=== PATIENT | male | born 1990 | race African-American/Black ===

== ENCOUNTER 2021-01-01 | Emergency (ER) | payer MEDICAID ==
[2021-01-01 16:01] LABS: HEMATOCRIT 44.4 % (39.0-50.0); HEMOGLOBIN 14.9 g/dl (14.0-18.0); IMMATURE GRANULOCYTES 0.4 % (0.0-5.0); MEAN CELL VOLUME 84.3 fL CALC (80.0-100.0); MEAN CORPUSCULAR HGB 28.3 pG CALC (26.0-32.0); MEAN CORPUSCULAR HGB CONC 33.6 g/dL CAL (32.0-36.0); NEUT# 10.8 thou/uL (1.82-7.42); RED BLOOD COUNT 5.27 mill/uL (4.70-6.10)
[2021-01-01 16:18] LABS: ALBUMIN 4.8 g/dL (3.2-5.0); ALKALINE PHOSPHATASE 50 u/l (38-126); AMYLASE 124 u/l (30-110); ANION GAP 12 (6-22 (CALC)); BILIRUBIN, TOTAL 0.5 mg/dL (0.0-1.4); BUN 10 mg/dL (9-20); BUN/CREATININE RATIO 11 (12-20 (CALC)); CARBON DIOXIDE 26 mmol/l (22-30); CHLORIDE 103 mmol/l (95-108); CREATININE 0.9 mg/dL (0.7-1.3); GFR > 60 ML/MIN (>=60 (CALC)); GFR FOR AFR.AMER. > 60 ML/MIN (>=60 (CALC)); LIPASE 41 u/l (23-300); POTASSIUM 3.7 mmol/l (3.5-5.1); SGOT/AST 41 u/l (17-59); SODIUM 138 mmol/l (137-146); TOTAL PROTEIN 8.1 g/dL (6.3-8.2)
[2021-01-01 16:21] LABS: URINE BILIRUBIN - DIPSTICK NEGATIVE (NEGATIVE); URINE BLOOD DIPSTICK SMALL (NEGATIVE); URINE COLOR YELLOW; URINE GLUCOSE - DIPSTICK NEGATIVE (NEGATIVE); URINE KETONE >=80 mg/dL (NEGATIVE); URINE LEUK ESTERASE NEGATIVE (NEGATIVE); URINE PH 8.5 (4.5-8.0); URINE PROTEIN - DIPSTICK TRACE mg/dL (NEG-TRACE); URINE UROBILINOGEN - DIPSTICK 0.2 E.U./dL (0.2)
[2021-01-01 16:27] LABS: URINE NITRITE - DIPSTICK NEGATIVE (Negative)
[2021-01-01 16:28] LABS: MYOGLOBIN 42 ng/mL (0 - 121)
[2021-01-01] MEDS ORDERED: ONDANSETRON4 MG PO (17:19)
[2021-01-01] MEDS ORDERED: ULTRAM50 M1 PO (17:19)
[2021-01-01] MEDS ORDERED: CIPROFLOXACN500 MG PO (17:19)
== END 2021-01-01 18:13 | disposition home or self-care (01) | DRG 392 ==
PROVIDERS: Emergency Medicine
DX: K52.9 Noninfective gastroenteritis and colitis, unspecified (principal); F17.200 Nicotine dependence, unspecified, uncomplicated; Z20.822 Contact with and (suspected) exposure to COVID-19
CPT/HCPCS: Q9967; S0164

== ENCOUNTER 2021-01-03 | Emergency (ER) | payer MEDICAID ==
[~2021-01-03] MED LIST: CIPROFLOXACN500 MG PO; ONDANSETRON4 MG PO; ULTRAM50 M1 PO
[2021-01-03 13:19] LABS: HEMATOCRIT 43.7 % (39.0-50.0); HEMOGLOBIN 14.8 g/dl (14.0-18.0); IMMATURE GRANULOCYTES 0.1 % (0.0-5.0); MEAN CELL VOLUME 83.4 fL CALC (80.0-100.0); MEAN CORPUSCULAR HGB 28.2 pG CALC (26.0-32.0); MEAN CORPUSCULAR HGB CONC 33.9 g/dL CAL (32.0-36.0); NEUT# 6.14 thou/uL (1.82-7.42); RED BLOOD COUNT 5.24 mill/uL (4.70-6.10); RED CELL DISTRI WIDTH 13.7 % (11.5-15.5)
[2021-01-03 13:42] LABS: URINE BILIRUBIN - DIPSTICK NEGATIVE (NEGATIVE); URINE BLOOD DIPSTICK TRACE-LYSED (NEGATIVE); URINE COLOR YELLOW; URINE GLUCOSE - DIPSTICK NEGATIVE (NEGATIVE); URINE KETONE 15 mg/dL (NEGATIVE); URINE LEUK ESTERASE NEGATIVE (NEGATIVE); URINE PH 7.5 (4.5-8.0); URINE PROTEIN - DIPSTICK NEGATIVE (NEG-TRACE); URINE UROBILINOGEN - DIPSTICK 0.2 E.U./dL (0.2)
[2021-01-03 13:43] LABS: URINE NITRITE - DIPSTICK NEGATIVE (Negative)
[2021-01-03 13:46] LABS: ALBUMIN 4.8 g/dL (3.2-5.0); ALKALINE PHOSPHATASE 46 u/l (38-126); AMYLASE 121 u/l (30-110); ANION GAP 12 (6-22 (CALC)); BILIRUBIN, TOTAL 0.7 mg/dL (0.0-1.4); BUN 10 mg/dL (9-20); BUN/CREATININE RATIO 12 (12-20 (CALC)); CARBON DIOXIDE 24 mmol/l (22-30); CHLORIDE 103 mmol/l (95-108); CREATININE 0.9 mg/dL (0.7-1.3); GFR > 60 ML/MIN (>=60 (CALC)); GFR FOR AFR.AMER. > 60 ML/MIN (>=60 (CALC)); LIPASE 51 u/l (23-300); POTASSIUM 3.5 mmol/l (3.5-5.1); SGOT/AST 43 u/l (17-59); SODIUM 135 mmol/l (137-146)
== END 2021-01-03 17:49 | disposition home or self-care (01) | DRG 313 ==
PROVIDERS: Emergency Medicine
DX: R07.9 Chest pain, unspecified (principal); R10.9 Unspecified abdominal pain; F17.200 Nicotine dependence, unspecified, uncomplicated
CPT/HCPCS: Q9967

== ENCOUNTER 2021-05-28 20:04 | Emergency (ER) | payer MEDICAID ==
[~2021-05-28] VITALS: Ht 190.5 cm; Wt 77.0 kg
[2021-05-28 21:30] VITALS: BP 141/79
== END 2021-05-28 21:30 | disposition home or self-care (01) ==
LOC: ED 20:04
DX: U07.1 COVID-19 (principal); F17.200 Nicotine dependence, unspecified, uncomplicated

== ENCOUNTER 2021-10-24 10:44 | Emergency (ER) | payer OTHER ==
[~2021-10-24] VITALS: Ht 190.5 cm; Wt 80.0 kg
[2021-10-24 13:34] VITALS: BP 126/89
== END 2021-10-24 15:28 | disposition home or self-care (01) ==
LOC: ED 10:44
DX: M70.41 Prepatellar bursitis, right knee (principal); F17.210 Nicotine dependence, cigarettes, uncomplicated

== ENCOUNTER 2022-01-22 11:28 | Emergency (ER) | payer OTHER ==
[2022-01-22] VITALS (7 sets, daily range): BP systolic 115–140; BP diastolic 79–92
[~2022-01-22] VITALS: Ht 190.5 cm; Wt 70.0 kg
[2022-01-22 11:58] LABS: HEMOGLOBIN 15.5 g/dl (14.0-18.0); IMMATURE GRANULOCYTES 0.4 % (0.0-5.0); MEAN CELL VOLUME 86.4 fL CALC (80.0-100.0); MEAN CORPUSCULAR HGB 28.5 pG CALC (26.0-32.0); NEUT# 7.7 thou/uL (1.82-7.42); RED BLOOD COUNT 5.44 mill/uL (4.70-6.10); RED CELL DISTRI WIDTH 13.6 % (11.5-15.5)
[2022-01-22 12:11] LABS: ALBUMIN 4.7 g/dL (3.2-5.0); ALKALINE PHOSPHATASE 53 u/l (38-126); ANION GAP 8 (6-22 (CALC)); BUN 14 mg/dL (9-20); BUN/CREATININE RATIO 15 (12-20 (CALC)); CARBON DIOXIDE 28 mmol/l (22-30); CHLORIDE 104 mmol/l (95-108); CREATININE 0.9 mg/dL (0.7-1.3); ETHYL ALCOHOL 0 mg/dl (0-30); GFR > 60 ML/MIN (>=60 (CALC)); GFR FOR AFR.AMER. > 60 ML/MIN (>=60 (CALC)); LIPASE 56 u/l (23-300); POTASSIUM 4.2 mmol/l (3.5-5.1); SGOT/AST 30 u/l (17-59); SODIUM 136 mmol/l (137-146); TOTAL PROTEIN 7.8 g/dL (6.3-8.2)
[2022-01-22 12:13] LABS: BILIRUBIN, TOTAL 0.4 mg/dL (0.0-1.4)
[2022-01-22] MEDS ORDERED: PROTONIX40 M2 PO (13:51)
[2022-01-22] MEDS ORDERED: ZOFRAN4 MG/TAB PO (13:51)
== END 2022-01-22 14:18 | disposition home or self-care (01) ==
LOC: ED 11:28
DX: R10.84 Generalized abdominal pain (principal); R11.2 Nausea with vomiting, unspecified; R19.7 Diarrhea, unspecified; F12.10 Cannabis abuse, uncomplicated; F17.200 Nicotine dependence, unspecified, uncomplicated; Z20.822 Contact with and (suspected) exposure to COVID-19
CPT/HCPCS: Q9967; S0164

== ENCOUNTER 2022-01-24 08:07 | Emergency (ER) | payer OTHER ==
[2022-01-24] VITALS (12 sets, daily range): BP systolic 114–155; BP diastolic 68–102
[~2022-01-24] VITALS: Ht 190.5 cm; Wt 76.0 kg
[~2022-01-24 08:07] MED LIST changes: +PROTONIX40 M2 PO; +ZOFRAN4 MG/TAB PO
[2022-01-24 08:40] LABS: HEMOGLOBIN 15.5 g/dl (14.0-18.0); IMMATURE GRANULOCYTES 0.3 % (0.0-5.0); MEAN CELL VOLUME 88.2 fL CALC (80.0-100.0); MEAN CORPUSCULAR HGB 29.1 pG CALC (26.0-32.0); NEUT# 5.52 thou/uL (1.82-7.42); RED BLOOD COUNT 5.33 mill/uL (4.70-6.10); RED CELL DISTRI WIDTH 13.6 % (11.5-15.5)
[2022-01-24 08:53] LABS: ALBUMIN 4.2 g/dL (3.2-5.0); ALKALINE PHOSPHATASE 41 u/l (38-126); BUN 10 mg/dL (9-20); BUN/CREATININE RATIO 10 (12-20 (CALC)); CHLORIDE 106 mmol/l (95-108); CREATININE 0.9 mg/dL (0.7-1.3); GFR > 60 ML/MIN (>=60 (CALC)); GFR FOR AFR.AMER. > 60 ML/MIN (>=60 (CALC)); LIPASE 73 u/l (23-300); POTASSIUM 3.9 mmol/l (3.5-5.1); SGOT/AST 27 u/l (17-59); SODIUM 136 mmol/l (137-146); TOTAL PROTEIN 7.2 g/dL (6.3-8.2)
[2022-01-24 09:07] LABS: ANION GAP 13 (6-22 (CALC)); BILIRUBIN, TOTAL 0.6 mg/dL (0.0-1.4); CARBON DIOXIDE 21 mmol/l (22-30)
[2022-01-24 09:52] LABS: URINE BILIRUBIN - DIPSTICK NEGATIVE (NEGATIVE); URINE BLOOD DIPSTICK SMALL (NEGATIVE); URINE COLOR YELLOW; URINE GLUCOSE - DIPSTICK NEGATIVE (NEGATIVE); URINE KETONE 40 mg/dL (NEGATIVE); URINE LEUK ESTERASE NEGATIVE (NEGATIVE); URINE PROTEIN - DIPSTICK NEGATIVE (NEG-TRACE); URINE UROBILINOGEN - DIPSTICK 0.2 E.U./dL (0.2)
[2022-01-24 09:53] LABS: URINE NITRITE - DIPSTICK NEGATIVE (Negative)
[2022-01-24] MEDS ORDERED: BENTYL10 M1 PO (10:56)
[2022-01-24] MEDS ORDERED: SENNA-S1 TAB PO (10:56)
[2022-01-25] MEDS ORDERED: TORADOL PO (13:31)
[2022-01-25] MEDS ORDERED: PHENERGAN25 MG RE (13:31)
[2022-01-25] MEDS ORDERED: SENNA-S1 TAB PO (13:31)
== END 2022-01-24 11:14 | disposition home or self-care (01) ==
LOC: ED 08:07
PROVIDERS: Internal Medicine
DX: R10.84 Generalized abdominal pain (principal); F17.210 Nicotine dependence, cigarettes, uncomplicated; K56.41 Fecal impaction
CPT/HCPCS: J2060

== ENCOUNTER 2022-01-25 08:35 | Emergency (ER) | payer OTHER ==
[2022-01-25] VITALS (17 sets, daily range): BP systolic 117–170; BP diastolic 73–101
[~2022-01-25] VITALS: Ht 190.5 cm; Wt 72.7 kg
[~2022-01-25 08:35] MED LIST changes: +BENTYL10 M1 PO; +SENNA-S1 TAB PO
[2022-01-25 08:57] LABS: HEMATOCRIT 46.6 % (39.0-50.0); HEMOGLOBIN 15.5 g/dl (14.0-18.0); IMMATURE GRANULOCYTES 0.2 % (0.0-5.0); MEAN CELL VOLUME 87.4 fL CALC (80.0-100.0); MEAN CORPUSCULAR HGB 29.1 pG CALC (26.0-32.0); MEAN CORPUSCULAR HGB CONC 33.3 g/dL CAL (32.0-36.0); NEUT# 4.76 thou/uL (1.82-7.42); RED BLOOD COUNT 5.33 mill/uL (4.70-6.10); RED CELL DISTRI WIDTH 13.6 % (11.5-15.5)
[2022-01-25 09:12] LABS: ALBUMIN 4.4 g/dL (3.2-5.0); ALKALINE PHOSPHATASE 41 u/l (38-126); BILIRUBIN, TOTAL 0.6 mg/dL (0.0-1.4); BUN 11 mg/dL (9-20); BUN/CREATININE RATIO 13 (12-20 (CALC)); CHLORIDE 108 mmol/l (95-108); CPK 156 u/l (52-200); CREATININE 0.8 mg/dL (0.7-1.3); GFR > 60 ML/MIN (>=60 (CALC)); GFR FOR AFR.AMER. > 60 ML/MIN (>=60 (CALC)); LIPASE 107 u/l (23-300); MAGNESIUM 1.7 mg/dL (1.6-2.3); POTASSIUM 4.1 mmol/l (3.5-5.1); SGOT/AST 25 u/l (17-59); SODIUM 140 mmol/l (137-146); TOTAL PROTEIN 7.1 g/dL (6.3-8.2)
[2022-01-25 09:13] LABS: ANION GAP 9 (6-22 (CALC)); CARBON DIOXIDE 27 mmol/l (22-30)
[2022-01-25] MEDS ORDERED: SENNA-S1 TAB PO (13:31)
[2022-01-25] MEDS ORDERED: PHENERGAN25 MG RE (13:31)
[2022-01-25] MEDS ORDERED: TORADOL PO (13:31)
== END 2022-01-25 13:31 | disposition home or self-care (01) ==
LOC: ED 08:35
PROVIDERS: Internal Medicine
DX: R11.10 Vomiting, unspecified (principal); R10.33 Periumbilical pain; F12.10 Cannabis abuse, uncomplicated; F17.200 Nicotine dependence, unspecified, uncomplicated
CPT/HCPCS: J2060

== ENCOUNTER 2022-01-26 22:00 | Emergency (ER) | payer OTHER ==
[~2022-01-26] VITALS: Ht 190.5 cm; Wt 72.7 kg
[~2022-01-26 22:00] MED LIST changes: +PHENERGAN25 MG RE; +TORADOL PO
[2022-01-26 23:16] VITALS: BP 121/69
[2022-01-26 23:31] VITALS: BP 132/99
[2022-01-26 23:41] LABS: HEMOGLOBIN 14.6 g/dl (14.0-18.0); MEAN CELL VOLUME 85.5 fL CALC (80.0-100.0); NEUT# 7.32 thou/uL (1.82-7.42); RED BLOOD COUNT 5.03 mill/uL (4.70-6.10); RED CELL DISTRI WIDTH 12.9 % (11.5-15.5)
[2022-01-26 23:45] VITALS: BP 144/86
[2022-01-26 23:54] LABS: ALBUMIN 4.5 g/dL (3.2-5.0); ALKALINE PHOSPHATASE 45 u/l (38-126); AMYLASE 120 u/l (30-110); ANION GAP 9 (6-22 (CALC)); BILIRUBIN, TOTAL 0.4 mg/dL (0.0-1.4); BUN 12 mg/dL (9-20); BUN/CREATININE RATIO 14 (12-20 (CALC)); CARBON DIOXIDE 30 mmol/l (22-30); CHLORIDE 102 mmol/l (95-108); CREATININE 0.8 mg/dL (0.7-1.3); GFR > 60 ML/MIN (>=60 (CALC)); GFR FOR AFR.AMER. > 60 ML/MIN (>=60 (CALC)); LIPASE 63 u/l (23-300); POTASSIUM 3.7 mmol/l (3.5-5.1); SGOT/AST 28 u/l (17-59); SODIUM 137 mmol/l (137-146); TOTAL PROTEIN 7.1 g/dL (6.3-8.2)
[2022-01-27 00:01] VITALS: BP 142/95
[2022-01-27 00:30] VITALS: BP 139/73
[2022-01-27] MEDS ORDERED: ULTRAM50 M1 PO (04:36)
[2022-01-27] MEDS ORDERED: MECLIZINE25 MG PO (04:36)
[2022-01-27] MEDS ORDERED: PREVACID30 M3 PO (04:36)
[2022-01-27 04:40] VITALS: BP 139/73
== END 2022-01-27 04:48 | disposition home or self-care (01) ==
LOC: ED 22:00
PROVIDERS: Emergency Medicine
DX: R10.13 Epigastric pain (principal); R10.33 Periumbilical pain; R11.10 Vomiting, unspecified; F17.200 Nicotine dependence, unspecified, uncomplicated
CPT/HCPCS: Q9967; S0164

== ENCOUNTER 2022-03-28 10:23 | Emergency (ER) | payer MEDICAID ==
[~2022-03-28] VITALS: Ht 190.5 cm; Wt 80.0 kg
[~2022-03-28 10:23] MED LIST changes: +MECLIZINE25 MG PO; +PREVACID30 M3 PO
[2022-03-28] MEDS ORDERED: EC-NAPROXEN500 MG PO (11:59)
[2022-03-28 12:04] VITALS: BP 119/83
== END 2022-03-28 12:10 | disposition home or self-care (01) ==
LOC: ED 10:23
DX: M25.462 Effusion, left knee (principal); F17.200 Nicotine dependence, unspecified, uncomplicated
CPT/HCPCS: L1830

== ENCOUNTER 2022-05-25 15:31 | Emergency (ER) | payer MEDICAID ==
[~2022-05-25] VITALS: Ht 190.5 cm; Wt 90.9 kg
[2022-05-25] VITALS (12 sets, daily range): BP systolic 126–141; BP diastolic 70–94
[~2022-05-25 15:31] MED LIST changes: +EC-NAPROXEN500 MG PO
[2022-05-25 16:07] LABS: HEMATOCRIT 45.2 % (39.0-50.0); HEMOGLOBIN 15.5 g/dl (14.0-18.0); IMMATURE GRANULOCYTES 0.1 % (0.0-5.0); MEAN CELL VOLUME 84.5 fL CALC (80.0-100.0); MEAN CORPUSCULAR HGB CONC 34.3 g/dL CAL (32.0-36.0); NEUT# 7.15 thou/uL (1.82-7.42); RED BLOOD COUNT 5.35 mill/uL (4.70-6.10); RED CELL DISTRI WIDTH 13.1 % (11.5-15.5)
[2022-05-25 16:25] LABS: ALBUMIN 4.9 g/dL (3.2-5.0); ALKALINE PHOSPHATASE 56 u/l (38-126); AMYLASE 156 u/l (30-110); ANION GAP 12 (6-22 (CALC)); BUN 10 mg/dL (9-20); BUN/CREATININE RATIO 11 (12-20 (CALC)); CARBON DIOXIDE 29 mmol/l (22-30); CHLORIDE 103 mmol/l (95-108); CREATININE 0.9 mg/dL (0.7-1.3); GFR FOR AFR.AMER. > 60 ML/MIN (>=60 (CALC)); GFR OTHER RACES > 60 ML/MIN (>=60 (CALC)); LIPASE 67 u/l (23-300); POTASSIUM 4.1 mmol/l (3.5-5.1); SGOT/AST 30 u/l (17-59); SODIUM 140 mmol/l (137-146); TOTAL PROTEIN 8.1 g/dL (6.3-8.2)
[2022-05-25 16:28] LABS: BILIRUBIN, TOTAL 0.6 mg/dL (0.0-1.4)
[2022-05-25 16:37] LABS: MYOGLOBIN 47 ng/mL (0 - 121)
[2022-05-25] MEDS ORDERED: NAPROXEN500 MG PO (19:55)
[2022-05-25] MEDS ORDERED: METHOCARBAMOL500 MG PO (19:55)
[2022-05-25] MEDS ORDERED: ALPRAZOLAM0.25 MG PO (19:55)
== END 2022-05-25 20:10 | disposition home or self-care (01) ==
LOC: ED 15:31
PROVIDERS: Nurse Practitioner
DX: R07.9 Chest pain, unspecified (principal); F41.9 Anxiety disorder, unspecified; F17.200 Nicotine dependence, unspecified, uncomplicated

== ENCOUNTER 2022-05-28 09:36 | Emergency (ER) | payer MEDICAID ==
[2022-05-28] VITALS (8 sets, daily range): BP systolic 148–167; BP diastolic 93–118
[~2022-05-28] VITALS: Ht 190.5 cm; Wt 72.5 kg
[~2022-05-28 09:36] MED LIST changes: +ALPRAZOLAM0.25 MG PO; +METHOCARBAMOL500 MG PO; +NAPROXEN500 MG PO
[2022-05-28 10:17] LABS: HEMATOCRIT 46.1 % (39.0-50.0); HEMOGLOBIN 15.9 g/dl (14.0-18.0); IMMATURE GRANULOCYTES 0.1 % (0.0-5.0); MEAN CELL VOLUME 83.7 fL CALC (80.0-100.0); MEAN CORPUSCULAR HGB 28.9 pG CALC (26.0-32.0); MEAN CORPUSCULAR HGB CONC 34.5 g/dL CAL (32.0-36.0); NEUT# 7.16 thou/uL (1.82-7.42); RED BLOOD COUNT 5.51 mill/uL (4.70-6.10); RED CELL DISTRI WIDTH 12.7 % (11.5-15.5)
[2022-05-28 10:34] LABS: ALBUMIN 4.5 g/dL (3.2-5.0); ALKALINE PHOSPHATASE 43 u/l (38-126); ANION GAP 15 (6-22 (CALC)); BILIRUBIN, TOTAL 0.5 mg/dL (0.0-1.4); BUN 11 mg/dL (9-20); BUN/CREATININE RATIO 12 (12-20 (CALC)); CARBON DIOXIDE 27 mmol/l (22-30); CHLORIDE 101 mmol/l (95-108); CREATININE 0.9 mg/dL (0.7-1.3); GFR FOR AFR.AMER. > 60 ML/MIN (>=60 (CALC)); GFR OTHER RACES > 60 ML/MIN (>=60 (CALC)); POTASSIUM 3.7 mmol/l (3.5-5.1); SGOT/AST 25 u/l (17-59); SODIUM 140 mmol/l (137-146); TOTAL PROTEIN 7.6 g/dL (6.3-8.2)
== END 2022-05-28 13:18 | disposition home or self-care (01) ==
LOC: ED 09:36
PROVIDERS: Family Medicine
DX: R07.9 Chest pain, unspecified (principal); F17.200 Nicotine dependence, unspecified, uncomplicated; Z20.822 Contact with and (suspected) exposure to COVID-19
CPT/HCPCS: Q9967

== ENCOUNTER 2022-08-07 15:09 | Emergency (ER) | payer OTHER ==
[~2022-08-07] VITALS: Ht 190.5 cm; Wt 77.0 kg
[2022-08-07 18:40] VITALS: BP 130/62
== END 2022-08-07 18:40 | disposition home or self-care (01) ==
LOC: ED 15:09
DX: U07.1 COVID-19 (principal); F17.210 Nicotine dependence, cigarettes, uncomplicated

== ENCOUNTER 2022-11-08 08:25 | Emergency (ER) | payer OTHER ==
[~2022-11-08] VITALS: Ht 190.5 cm; Wt 70.3 kg
[2022-11-08] VITALS (10 sets, daily range): BP systolic 109–153; BP diastolic 67–106
[2022-11-08 09:03] LABS: URINE BLOOD DIPSTICK TRACE-INTACT (NEGATIVE); URINE COLOR YELLOW; URINE GLUCOSE - DIPSTICK NEGATIVE (NEGATIVE); URINE KETONE 15 mg/dL (NEGATIVE); URINE LEUK ESTERASE NEGATIVE (NEGATIVE); URINE PROTEIN - DIPSTICK TRACE mg/dL (NEG-TRACE); URINE SPECIFIC GRAVITY 1.025; URINE UROBILINOGEN - DIPSTICK 0.2 E.U./dL (0.2)
[2022-11-08 09:10] LABS: URINE BILIRUBIN - DIPSTICK SMALL (NEGATIVE); URINE NITRITE - DIPSTICK NEGATIVE (Negative)
[2022-11-08 09:30] LABS: BASO% 0.2 % (0-3); HEMATOCRIT 48.4 % (39.0-50.0); HEMOGLOBIN 16.3 g/dl (14.0-18.0); IMMATURE GRANULOCYTES 0.1 % (0.0-5.0); LYMPH% 11.9 % (15-41); MEAN CELL VOLUME 86.9 fL CALC (80.0-100.0); MEAN CORPUSCULAR HGB 29.3 pG CALC (26.0-32.0); MEAN CORPUSCULAR HGB CONC 33.7 g/dL CAL (32.0-36.0); MONO% 4.8 % (2-13); NEUT# 6.98 thou/uL (1.82-7.42); RED BLOOD COUNT 5.57 mill/uL (4.70-6.10); RED CELL DISTRI WIDTH 13.5 % (11.5-15.5)
[2022-11-08 09:43] LABS: ALBUMIN 4.9 g/dL (3.2-5.0); ALKALINE PHOSPHATASE 58 u/l (38-126); ANION GAP 11 (6-22 (CALC)); BUN 15 mg/dL (9-20); BUN/CREATININE RATIO 15 (12-20 (CALC)); CARBON DIOXIDE 30 mmol/l (22-30); CHLORIDE 103 mmol/l (95-108); GFR FOR AFR.AMER. > 60 ML/MIN (>=60 (CALC)); GFR OTHER RACES > 60 ML/MIN (>=60 (CALC)); LIPASE 61 u/l (23-300); POTASSIUM 4.3 mmol/l (3.5-5.1); SGOT/AST 33 u/l (17-59); SODIUM 140 mmol/l (137-146); TOTAL PROTEIN 7.6 g/dL (6.3-8.2)
[2022-11-08 09:44] LABS: BILIRUBIN, TOTAL 0.2 mg/dL (0.2-1.3)
[2022-11-08] MEDS ORDERED: ZOFRAN4 MG/TAB PO (12:04)
== END 2022-11-08 12:12 | disposition home or self-care (01) ==
LOC: ED 08:25
PROVIDERS: Family Medicine
DX: R10.12 Left upper quadrant pain (principal); R10.32 Left lower quadrant pain; R11.2 Nausea with vomiting, unspecified; F17.210 Nicotine dependence, cigarettes, uncomplicated
CPT/HCPCS: Q9967

== ENCOUNTER 2022-12-03 12:49 | Emergency (ER) | payer OTHER ==
[~2022-12-03] VITALS: Ht 190.5 cm; Wt 74.8 kg
[2022-12-03] VITALS (8 sets, daily range): BP systolic 100–141; BP diastolic 60–90
[2022-12-03] MEDS ORDERED: NAPROXEN500 MG PO (14:05)
== END 2022-12-03 14:48 | disposition home or self-care (01) ==
LOC: ED 12:49
DX: S63.501A Unspecified sprain of right wrist, initial encounter (principal); F17.200 Nicotine dependence, unspecified, uncomplicated; V28.09XA Other motorcycle driver injured in noncollision transport accident in nontraffic accident, initial encounter

== ENCOUNTER 2023-05-28 08:19 | Emergency (ER) | payer OTHER ==
[~2023-05-28] VITALS: Ht 190.5 cm; Wt 72.5 kg
[2023-05-28] VITALS (9 sets, daily range): BP systolic 107–123; BP diastolic 74–92
[2023-05-28 08:55] LABS: BASO% 0.5 % (0-3); EOS% 1.8 % (0-8); HEMATOCRIT 43.5 % (39.0-50.0); HEMOGLOBIN 14.3 g/dl (14.0-18.0); MEAN CELL VOLUME 86.3 fL CALC (80.0-100.0); MEAN CORPUSCULAR HGB 28.4 pG CALC (26.0-32.0); MEAN CORPUSCULAR HGB CONC 32.9 g/dL CAL (32.0-36.0); MONO% 10.6 % (2-13); NEUT# 2.28 thou/uL (1.82-7.42); NEUT% 40.1 % (42-76); RED BLOOD COUNT 5.04 mill/uL (4.70-6.10); RED CELL DISTRI WIDTH 13.7 % (11.5-15.5)
[2023-05-28 09:07] LABS: ALKALINE PHOSPHATASE 57 u/l (38-126); BUN 13 mg/dL (9-20); BUN/CREATININE RATIO 15 (12-20 (CALC)); CHLORIDE 106 mmol/l (95-108); CREATININE 0.9 mg/dL (0.7-1.3); GFR FOR AFR.AMER. > 60 ML/MIN (>=60 (CALC)); GFR OTHER RACES > 60 ML/MIN (>=60 (CALC)); POTASSIUM 4.2 mmol/l (3.5-5.1); SGOT/AST 47 u/l (17-59); SODIUM 136 mmol/l (137-146); TOTAL PROTEIN 6.6 g/dL (6.3-8.2)
[2023-05-28 09:08] LABS: ANION GAP 12 (6-22 (CALC)); BILIRUBIN, TOTAL 0.5 mg/dL (0.2-1.3); CARBON DIOXIDE 22 mmol/l (22-30)
== END 2023-05-28 11:45 | disposition home or self-care (01) ==
LOC: ED 08:19
PROVIDERS: Family Medicine
DX: R42 Dizziness and giddiness (principal); R53.1 Weakness; F17.210 Nicotine dependence, cigarettes, uncomplicated; Z20.822 Contact with and (suspected) exposure to COVID-19